=== PATIENT | male | born 1985 | race African-American/Black ===

== ENCOUNTER → 2023-10-07 17:09 | Outpatient (CLI) | payer OTHER, SELFPAY ==
--- NOTE | 2023-10-07 | DI.MRI.S_ITS ---
PROCEDURE: MR ANKLE LT WO CON INDICATIONS: Sinus tarsitis left TECHNIQUE: Noncontrast sagittal T1 spin echo and T2 fast spin echo with fat saturation, axial proton density fast spin echo and T2 fast spin echo with fat saturation, coronal T1 spin echo and T2 fast spin echo with fat saturation through the ankle/hindfoot. COMPARISON: [facility], CR, XR FOOT 3+ VIEWS LEFT, 09/28/2023, 16:09. [facility], CR, XR ANKLE 1 OR 2 VIEWS LEFT, 09/28/2023, 16:12. FINDINGS: Image quality: Excellent. Bones and joints: Sagging of the midfoot is compatible with pes planus. Mild edema is seen within the navicular that may be related to degenerative changes versus acute stress reaction. There are degenerative changes at the mortise joint, talonavicular, and naviculocuneiform articulations. A nonedematous ossification is seen at the anterolateral ankle that is likely the sequela of a remote prior injury or intra-articular loose body. No hindfoot coalitions. No osteochondral injuries of the talar dome. Medial structures: The tibiospring ligament and the superomedial band of the spring ligament are bowed medially around the talar head. Mild posterior tibialis tendinosis. The flexor digitorum longus and flexor hallucis longus tendons are intact. The posterior tibial neurovascular bundle appears normal within the tarsal tunnel, without extrinsic mass effect. Lateral structures: Remote prior moderate grade sprain of the anterior talofibular ligament and low-grade sprain of the calcaneofibular ligament. Posterior talofibular ligament appears to be intact. The anterior and posterior tibiofibular ligaments are intact. The peroneus longus and brevis tendons demonstrate normal location and morphology. There is partial effacement of the normal fat signal in the sinus tarsi. Anterior structures: The tibialis anterior, extensor hallucis longus, and extensor digitorum longus tendons appear intact. Posterior and plantar structures: Achilles tendon is intact. The proximal plantar fascia is intact. No abductor digiti minimi muscle atrophy to suggest Farris neuropathy. IMPRESSION: 1. Mild osseous edema within the navicular may be degenerative versus secondary to acute stress reaction. No acute fracture line is seen. 2. Pes planus. 3. [id number] degenerative changes at the tibiotalar, talonavicular, naviculocuneiform articulations. 4. Nonedematous ossification adjacent to the medial malleolus may be the sequela of a remote prior injury versus intra-articular loose body. 5. Effacement of the normal fat signal in the sinus tarsi is nonspecific but can be seen in setting of clinical sinus tarsi syndrome. 6. Medial bowing of the tibiospring ligament and the superior medial band of the spring ligament around the talar head. 7. Remote prior grade 2 sprain of the anterior talofibular ligament and grade 1 sprain of the calcaneofibular ligament. Approved by: Marciano Archer M.D. on 10/08/2023 at 11:12
== END ==
LOC: MRI 17:13
PROVIDERS: Referring Provider Podiatrist; Visit Provider Podiatrist
DX: S93.492A Sprain of other ligament of left ankle, initial encounter (principal); S93.412A Sprain of calcaneofibular ligament of left ankle, initial encounter; M25.572 Pain in left ankle and joints of left foot; M21.42 Flat foot [pes planus] (acquired), left foot; R60.0 Localized edema
CPT/HCPCS: 73721